=== PATIENT | female | born 2000 | race Hispanic/Latino ===

== ENCOUNTER 2023-06-12 19:06 | Emergency (ER) | payer OTHER ==
[~2023-06-12] VITALS: Ht 157.5 cm; Wt 77.0 kg
[~2023-06-12 19:06] MED LIST: AMOXICILLIN500 MG PO; MOTRIN800 MG PO
[2023-06-12 19:12] VITALS: BP 123/77
[2023-06-12 20:00] VITALS: BP 123/77
== END 2023-06-12 20:10 | disposition home or self-care (01) | DRG 156 ==
LOC: ED 19:06
DX: T17.228A Food in pharynx causing other injury, initial encounter (principal)